=== PATIENT | female | born 1960 | race Caucasian/White ===

== ENCOUNTER → 2017-04-20 | Outpatient (CLI) | payer MEDICARE, OTHER ==
[~2017-04-20] MED LIST: AMOXIL500 MG PO; ANASTROZOLE1 MG PO; ATORVASTATIN CA20 MG PO; CALCIUM WITH VI1 TAB PO; CINNAMON500 MG PO; CIPRO 500MG TA500 MG PO; CRESTOR10 MG PO; CRESTOR20 MG PO; CYMBALTA60 MG PO; ENTERIC ASPIRI325 MG PO; FLUOXETINE20 MG PO; GABAPENTIN300 MG PO; INSULIN GL100 UNITS/ SC; INVOKANA300 MG PO; KRILL OIL 1,001 EACH PO; LANTUS INS100 UNITS/ SC; LEVAQUIN500 MG PO; LISINOPRIL 10MG10 MG PO; LISINOPRIL 20MG20 MG PO; MEDROL 4MG. DOSE4 MG PO; MELOXICAM7.5 MG PO; METFORMIN500 MG PO; METOPROLOL SUCC50 M1 PO; METOPROLOL25 MG PO; MULTI VITAMINS1 TA1 PO; NORCO 325 MG-51 TAB PO; Novolog100 U/ML SC; OMEGA-31000 MG PO; PHENERGAN 25MG.25 M1 PO; ROCEPHIN 1 GM VI1 GM IV; SUPER B COMPLEX1 TAB PO; TRADJENTA5 MG PO; TRICOR145 M1 PO; TRILIPIX45 M1 PO; VITAMIN D2000 I1 PO; ZOFRAN4 MG PO
== END ==
LOC: LAB 08:22
DX: E11.65 Type 2 diabetes mellitus with hyperglycemia (principal); I10 Essential (primary) hypertension; E78.00 Pure hypercholesterolemia, unspecified; E11.29 Type 2 diabetes mellitus with other diabetic kidney complication; E11.40 Type 2 diabetes mellitus with diabetic neuropathy, unspecified; F32.9 Major depressive disorder, single episode, unspecified; N39.0 Urinary tract infection, site not specified

== ENCOUNTER → 2017-06-29 | Outpatient (CLI) | payer MEDICARE, OTHER ==
--- NOTE | 2017-06-29 12:00 | RADIOLOGY REPORT PS360 ---
HIP RT 2-3V W/PELVIS IF PERFOR HISTORY: RT HIP PAIN ORDERING PHYSICIAN: Yao Butler MD PATIENT AGE: 57 years COMPARISON: None FINDINGS: No fracture or dislocation. No lytic or blastic change. Mild osteoarthritic changes are present at the SI joints. Degenerative disc disease is present at L4-L5. Nonspecific well-circumscribed calcific density is present at the right ischial tuberosity and could represent an old avulsion injury. This was present on previous CT scan 10/02/2016 IMPRESSION: 1. No acute finding. 2. Osteoarthritic changes of the SI joints and degenerative disc disease of L4-L5
== END ==
LOC: RAD 10:53
DX: M25.551 Pain in right hip (principal)

== ENCOUNTER → 2017-08-03 | Outpatient (CLI) | payer MEDICARE, OTHER ==
[2017-08-03 11:08] LABS: BUN 15 mg/dL (7-18)
[2017-08-03 11:09] LABS: GFR (ESTIMATED) 86 ML/MIN (59-)
[2017-08-04 09:37] LABS: Creatinine, Urine 52.9 mg/dL (Not Estab.); Microalbumin, Urine 598.7 ug/mL (Not Estab.)
== END ==
LOC: LAB 08:59
PROVIDERS: Family Medicine
DX: E78.2 Mixed hyperlipidemia (principal); E11.3299 Type 2 diabetes mellitus with mild nonproliferative diabetic retinopathy without macular edema, unspecified eye; I10 Essential (primary) hypertension; Z79.899 Other long term (current) drug therapy